=== PATIENT | female | born 1990 | race Caucasian/White ===

== ENCOUNTER 2018-04-12 11:26 | Emergency (ER) | payer MEDICAID ==
[~2018-04-12] VITALS: Ht 157.5 cm; Wt 86.0 kg
[2018-04-12] MEDS ORDERED: HYDROCODONE/ACETAMINOPHEN 5/325MG TABLET PO ONE (13:15)
[2018-04-12 14:52] LABS: HCG SCREEN NEGATIVE
[2018-04-12 16:50] VITALS: BP 112/76
== END 2018-04-12 16:52 | disposition home or self-care (01) ==
LOC: ER 11:26
DX: M25.562 Pain in left knee (principal); R20.0 Anesthesia of skin; R20.2 Paresthesia of skin; Z88.1 Allergy status to other antibiotic agents; W01.0XXA Fall on same level from slipping, tripping and stumbling without subsequent striking against object, initial encounter; Y93.89 Activity, other specified; Y92.89 Other specified places as the place of occurrence of the external cause; Y99.8 Other external cause status
CPT/HCPCS: 73562; 84703; 99284; L1830

== ENCOUNTER 2018-06-27 06:43 | Emergency (ER) | payer MEDICAID ==
[~2018-06-27] VITALS: Ht 162.6 cm; Wt 90.6 kg
[2018-06-27] MEDS ORDERED: ACETAMINOPHEN 325MG TABLET PO ONE (08:30)
[2018-06-27 09:00] VITALS: BP 114/69
== END 2018-06-27 09:05 | disposition home or self-care (01) ==
LOC: ER 06:43
DX: J06.9 Acute upper respiratory infection, unspecified (principal); S20.112A Abrasion of breast, left breast, initial encounter; Z88.0 Allergy status to penicillin; Z98.890 Other specified postprocedural states; X58.XXXA Exposure to other specified factors, initial encounter; Y92.018 Other place in single-family (private) house as the place of occurrence of the external cause
CPT/HCPCS: 99282